=== PATIENT | male | born 1995 | race Caucasian/White ===

== ENCOUNTER 2017-07-30 02:36 | Emergency (ER) | payer SELFPAY ==
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
[2017-07-30 03:33] VITALS: BP 110/68; TEMP 97.7; O2SAT 97
== END 2017-07-30 03:31 | disposition home or self-care (01) ==
LOC: ER 02:36
DX: R20.8 Other disturbances of skin sensation (principal); F17.210 Nicotine dependence, cigarettes, uncomplicated; N28.9 Disorder of kidney and ureter, unspecified

== ENCOUNTER 2017-08-17 07:01 | Emergency (ER) | payer SELFPAY ==
[2017-08-17 07:14] VITALS: BP 115/76; TEMP 97.6; O2SAT 98
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
[2017-08-17] MEDS: NEOMYCIN-BACITRACIN-POLYMYXIN 0.9 GM UD TOP SCH (07:30)
== END 2017-08-17 07:39 | disposition home or self-care (01) ==
LOC: ER 07:01
DX: T23.311A Burn of third degree of right thumb (nail), initial encounter (principal); Z87.891 Personal history of nicotine dependence; X10.2XXA Contact with fats and cooking oils, initial encounter; Y92.9 Unspecified place or not applicable

== ENCOUNTER 2018-10-03 06:33 | Emergency (ER) | payer SELFPAY ==
[2018-10-03 06:46] VITALS: BP 122/80; TEMP 97; O2SAT 99
[2018-10-03] MEDS ORDERED: CLINDAMYCIN HCL CAP 150 MG CAP PO ONE (06:52)
[2018-10-03] MEDS ORDERED: HYDROcodone 7.5MG/APAP 325MG 1 EA TAB PO ONE (06:52)
--- NOTE | 2018-10-03 06:55 | ED.PDOC ---
History of Present Illness - General Chief Complaint: Dental/Mouth Stated Complaint: toothache right top and bottom side of mouth Time Seen by Provider: 10/03/18 06:49 Source: patient Exam Limitations: no limitations - History of Present Illness Initial Comments: the patient is a 23-year-old male presenting with pain from infected dental caries. No obvious abscess formation. He does have some significant gingivitis currently. He does have multiple dental caries but his pain is primarily coming from the right mandibular molars. Ear canal seems to be clear. He is tender over the area. Again no obvious abscess. Timing/Duration: 24 hours Severity: severe Improving Factors: nothing Worsening Factors: nothing Associated Symptoms: denies symptoms Allergies/Adverse Reactions: Allergies NO KNOWN ALLERGY Allergy (Verified 10/03/18 06:46) Home Medications: Ambulatory Orders Clindamycin HCl 300 mg PO Q8H #30 cap 10/03/18 Tramadol HCl 50 mg PO Q8HR PRN #20 tab 10/03/18 Review of Systems - Review of Systems Constitutional: States: no symptoms reported EENTM: States: see HPI Respiratory: States: no symptoms reported Cardiology: States: no symptoms reported Gastrointestinal/Abdominal: States: no symptoms reported Genitourinary: States: no symptoms reported Musculoskeletal: States: no symptoms reported Skin: States: no symptoms reported Neurological: States: no symptoms reported Endocrine: States: no symptoms reported All other Systems: No Change from Baseline Past Medical History (General) - Patient Medical History Hx Seizures: No Hx Stroke: No Hx Dementia: No Hx Asthma: No Hx of COPD: No Hx Cardiac Disorders: No Hx Congestive Heart Failure: No Hx Pacemaker: No Hx Hypertension: No Hx Thyroid Disease: No Hx Diabetes: No Hx Gastroesophageal Reflux: No Hx Renal Disease: No Hx Cancer: No Hx of HIV: No Hx Hepatitis C: No Hx MRSA: No Surgical History: no surgical history - Vaccination History Hx Tetanus, Diphtheria Vaccination: No Hx Influenza Vaccination: No Hx Pneumococcal Vaccination: No - Social History Hx Tobacco Use: Yes Hx Chewing Tobacco Use: No Hx Alcohol Use: Yes - occasional Hx Substance Use: No Hx Substance Use Treatment: No Hx Depression: No Hx Physical Abuse: No Hx Emotional Abuse: No Hx Suspected Abuse: No Family Medical History - Family History Mother Living Status: Still Living Hx Family Asthma: No Hx Family Congestive Heart Failure: No Hx Family Hypertension: Yes Hx Family Stroke: No Hx Cardiac Disease: No Hx Family Diabetes: No Hx Family Cancer: Yes - breast Physical Exam - Physical Exam General Appearance: Alert, Anxious, Obvious distress Eye Exam: bilateral normal Ears, Nose, Throat: hearing grossly normal, other - poor dentition with multiple dental caries and gingival ainflammation on the right mandibular area Neck: full range of motion, supple Respiratory: no respiratory distress, no accessory muscle use Cardiovascular/Chest: normal peripheral pulses, no edema Peripheral Pulses: radial,right: 2+, radial,left: 2+ Gastrointestinal/Abdominal: non tender, soft Rectal Exam: deferred Back Exam: no CVA tenderness, no vertebral tenderness Extremity: non-tender, normal inspection, no pedal edema, normal capillary refill 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 He is going to placed on clindamycin and he will be written for tramadol for pain control. He can take Motrin additionally for pain control. Needs to follow-up with his dentist this afternoon as I doubt the medications above well reduce his pain adequately on their own. He can continue topical Orajel. ER warnings were given. Keep routine follow-up with primary care doctor. Departure - Departure Clinical Impression: Infected dental caries, Acute pain of mouth Disposition: Discharge to Home or Self Care Condition: Fair Departure Forms: ED Discharge - Pt. Copy, Patient Portal Self Enrollment Instructions: DI for Dental Pain Diet: regular diet Activity: increase activity as tolerated Referrals: Nick Weiner MD [Primary Care Provider] - 1-2 Weeks Prescriptions: Tramadol HCl 50 mg PO Q8HR PRN #20 tab PRN Reason: Moderate Pain Clindamycin HCl 300 mg PO Q8H #30 cap Home Medications: Ambulatory Orders Clindamycin HCl 300 mg PO Q8H #30 cap 10/03/18 Tramadol HCl 50 mg PO Q8HR PRN #20 tab 10/03/18 Additional Instructions: the patient is a 23-year-old male with what appears to be pain from infected dental caries to the right mandibular area. He is going to placed on clindamycin and he will be written for tramadol for pain control. He can take Motrin additionally for pain control. Needs to follow-up with his dentist this afternoon as I doubt the medications above well reduce his pain adequately on their own. He can continue topical Orajel. ER warnings were given. Keep routine follow-up with primary care doctor.
[2018-10-03] MEDS ORDERED: KETOROLAC TROMETHAMINE INJ 30 MG/ML VIAL IM ONE (06:58)
== END 2018-10-03 07:11 | disposition home or self-care (01) ==
LOC: ER 06:33
DX: K04.7 Periapical abscess without sinus (principal); K02.9 Dental caries, unspecified; K05.10 Chronic gingivitis, plaque induced; Z87.891 Personal history of nicotine dependence

== ENCOUNTER 2019-07-18 22:58 | Emergency (ER) | payer SELFPAY ==
[2019-07-18 23:13] VITALS: BP 130/68; TEMP 97.4; O2SAT 99
--- NOTE | 2019-07-18 23:19 | ED.PDOC ---
History of Present Illness - General Chief Complaint: General Stated Complaint: there's something in my eye Time Seen by Provider: 07/18/19 23:13 Source: patient - History of Present Illness Initial Comments: 23 y/o male cutting tree with a power this afternoon when he felt something go into his R eye. He is most comfortable with his eye closed Allergies/Adverse Reactions: Allergies NO KNOWN ALLERGY Allergy (Verified 10/03/18 06:46) Home Medications: Ambulatory Orders Clindamycin HCl 300 mg PO Q8H #30 cap 10/03/18 Tramadol HCl 50 mg PO Q8HR PRN #20 tab 10/03/18 Acetaminophen W/ Codeine [Tylenol W/ CODEINE #3] 1 ea PO Q6HR PRN 7 Days #12 07/19/19 Gentamicin 0.3% Ophth Ann-Marie [Garamycin Opthalmic Solution] 5 ml OPHTH QID #1 bttl 07/19/19 Review of Systems - Review of Systems Constitutional: States: no symptoms reported, see HPI EENTM: States: see HPI, eye pain, blurred vision, tearing Respiratory: States: no symptoms reported Cardiology: States: no symptoms reported Genitourinary: States: no symptoms reported Musculoskeletal: States: no symptoms reported Skin: States: no symptoms reported Neurological: States: no symptoms reported Endocrine: States: no symptoms reported Hematologic/Lymphatic: States: no symptoms reported Past Medical History (General) - Patient Medical History Hx Seizures: No Hx Stroke: No Hx Dementia: No Hx Asthma: No Hx of COPD: No Hx Cardiac Disorders: No Hx Congestive Heart Failure: No Hx Pacemaker: No Hx Hypertension: No Hx Thyroid Disease: No Hx Diabetes: No Hx Gastroesophageal Reflux: No Hx Renal Disease: No Hx Cancer: No Hx of HIV: No Hx Hepatitis C: No Hx MRSA: No Surgical History: no surgical history - Vaccination History Hx Tetanus, Diphtheria Vaccination: No Hx Influenza Vaccination: No Hx Pneumococcal Vaccination: No Immunizations Up to Date: No - Social History Hx Tobacco Use: No Hx Chewing Tobacco Use: No Hx Alcohol Use: No Hx Substance Use: No Hx Substance Use Treatment: No Hx Depression: No Feels Threatened In Home Enviroment: No Feels Threatened In a Relationship: No Hx Physical Abuse: No Hx Emotional Abuse: No Hx Suspected Abuse: No - Female History Patient is a Female of Child Bearing Age (10 -59 yrs old): No Family Medical History - Family History Mother Living Status: Still Living Hx Family Asthma: No Hx Family Congestive Heart Failure: No Hx Family Hypertension: Yes Hx Family Stroke: No Hx Cardiac Disease: No Hx Family Diabetes: No Hx Family Cancer: Yes - breast Physical Exam - Physical Exam General Appearance: Alert, Obvious distress Ears, Nose, Throat: hearing grossly normal Neck: full range of motion, supple Respiratory: no respiratory distress Progress - Progress Progress: 07/19/19 00:08 attempted to examine R eye but patient resisted exam in spite of tetracaine drops. I could not mau lid. No foreign body on direct exam. He did have a crescent shaped corneal abrasion form 10 to 2 o'clock' Departure - Departure Clinical Impression: Corneal abrasion, right Qualifiers: Encounter type: initial encounter Qualified Code(s): S05.01XA - Injury of conju nctiva and corneal abrasion without foreign body, right eye, initial encounter Disposition: Discharge to Home or Self Care Condition: Good Departure Forms: ED Discharge - Pt. Copy, Patient Portal Self Enrollment Instructions: Corneal Abrasion Referrals: Philipp Espitia III, MD [Primary Care Provider] - 1-2 Weeks Prescriptions: Acetaminophen W/ Codeine [Tylenol W/ CODEINE #3] 1 ea PO Q6HR PRN 7 Days #12 PRN Reason: Moderate To Severe Pain Gentamicin 0.3% Ophth Ann-Marie [Garamycin Opthalmic Solution] 5 ml OPHTH QID #1 bttl Home Medications: Ambulatory Orders Clindamycin HCl 300 mg PO Q8H #30 cap 10/03/18 Tramadol HCl 50 mg PO Q8HR PRN #20 tab 10/03/18 Acetaminophen W/ Codeine [Tylenol W/ CODEINE #3] 1 ea PO Q6HR PRN 7 Days #12 07/19/19 Gentamicin 0.3% Ophth Ann-Marie [Garamycin Opthalmic Solution] 5 ml OPHTH QID #1 bttl 07/19/19
[2019-07-18] MEDS: TETRACAINE HCL 0.5% OPHTH SOL 1 DROP RIGHT_EYE ONE (23:33)
[2019-07-18] MEDS: FLUORESCEIN SODIUM OPHTH STRIP RIGHT_EYE ONE (23:34)
== END 2019-07-19 00:20 | disposition home or self-care (01) ==
LOC: ER 22:58
DX: S05.01XA Injury of conjunctiva and corneal abrasion without foreign body, right eye, initial encounter (principal); W22.8XXA Striking against or struck by other objects, initial encounter; Y92.9 Unspecified place or not applicable

== ENCOUNTER 2019-07-31 | Emergency (ER) | payer SELFPAY ==
--- NOTE | 2019-07-31 14:33 | ED.PDOC ---
History of Present Illness - General Time Seen by Provider: 07/31/19 14:26 Source: patient, RN notes reviewed, Vital Signs reviewed, old records Exam Limitations: no limitations - History of Present Illness Initial Comments: Pt presents for 1 week h/o dental pain. States bilateral upper molars are hurting. Clod and hot foods and liquids make it worse. Denies fever, chills, NVD or SOB. Reports h/o poor dentition and multiple cavities and gets this frequently and typically resolves with antibiotics. Does not have a dentist he sees regularly. Allergies/Adverse Reactions: Allergies NO KNOWN ALLERGY Allergy (Verified 10/03/18 06:46) Home Medications: Ambulatory Orders Acetaminophen W/ Codeine [Tylenol W/ CODEINE #3] 1 tablet PO Q6H PRN #14 07/31/19 Amoxicillin [Amoxil] 500 mg PO TID 10 Days #60 cap 07/31/19 Review of Systems - Review of Systems Constitutional: Denies: chills, fever, weakness EENTM: States: other - dental pain. Denies: ear pain, nose congestion, throat pain Cardiology: Denies: edema, palpitations, syncope Gastrointestinal/Abdominal: Denies: abdominal pain, diarrhea, nausea, vomiting Musculoskeletal: Denies: back pain, neck pain Neurological: States: no symptoms reported All other Systems: Reviewed and Negative Past Medical History (General) - Patient Medical History Hx Seizures: No Hx Stroke: No Hx Dementia: No Hx Asthma: No Hx of COPD: No Hx Cardiac Disorders: No Hx Congestive Heart Failure: No Hx Pacemaker: No Hx Hypertension: No Hx Thyroid Disease: No Hx Diabetes: No Hx Gastroesophageal Reflux: No Hx Renal Disease: No Hx Cancer: No Hx of HIV: No Hx Hepatitis C: No Hx MRSA: No - Vaccination History Hx Tetanus, Diphtheria Vaccination: No Hx Influenza Vaccination: No Hx Pneumococcal Vaccination: No - Social History Hx Tobacco Use: No Hx Chewing Tobacco Use: No Hx Alcohol Use: No Hx Substance Use: No Hx Substance Use Treatment: No Hx Depression: No Hx Physical Abuse: No Hx Emotional Abuse: No Hx Suspected Abuse: No Family Medical History - Family History Mother Living Status: Still Living Hx Family Asthma: No Hx Family Congestive Heart Failure: No Hx Family Hypertension: Yes Hx Family Stroke: No Hx Cardiac Disease: No Hx Family Diabetes: No Hx Family Cancer: Yes - breast Physical Exam - Physical Exam General Appearance: Alert, Comfortable, No apparent distress Nasal Exam: normal inspection Throat Exam: other - Oropharynx has no erythema or exudates. No trismus. Multiple decayed teeth. No abscess seen. No facial edema or erythema Neck: non-tender, full range of motion, supple Cardiovascular/Respiratory: regular rate, rhythm, normal breath sounds, no respiratory distress Abdominal Exam: non-tender Skin Exam: normal color, warm/dry Progress - Progress Progress: 07/31/19 14:37 Pt has h/o poor dentition and presents to ED for 1 week h/o bilateral upper toothaches. No facial edema, fever. No abscess seen on exam. Will treat with antibiotics and f/u with dentist within 3 days for continued evaluation. SRP given. Departure - Departure Clinical Impression: Dental caries, Pain, dental Time of Disposition: 14:34 Disposition: Discharge to Home or Self Care Condition: Good Instructions: DI for Dental Pain Diet: resume usual diet Referrals: Philipp Espitia III, MD [Primary Care Provider] - 1-2 Weeks Prescriptions: Acetaminophen W/ Codeine [Tylenol W/ CODEINE #3] 1 tablet PO Q6H PRN #14 PRN Reason: Pain Amoxicillin [Amoxil] 500 mg PO TID 10 Days #60 cap Home Medications: Ambulatory Orders Acetaminophen W/ Codeine [Tylenol W/ CODEINE #3] 1 tablet PO Q6H PRN #14 07/31/19 Amoxicillin [Amoxil] 500 mg PO TID 10 Days #60 cap 07/31/19
== END 2019-07-31 14:48 | disposition home or self-care (01) ==
DX: K02.9 Dental caries, unspecified (principal)